=== PATIENT | female | born 1990 | race Two or more races ===

== ENCOUNTER 2019-11-30 12:00 | Emergency (ER) | payer SELFPAY ==
--- NOTE | 2019-11-30 13:18 | ER Document Report ---
ED Medical Screen (RME) - General Chief Complaint: Vag Bleeding, +preg <12wks Stated Complaint: VAGINAL BLEEDING Time Seen by Provider: 11/30/19 13:12 Mode of Arrival: Ambulatory Information source: Patient Notes: 28-year-old female presented to ED for pelvic pain since yesterday and bleeding since 5 AM this morning she states the bleeding is spotting but has steadily increased throughout the day and she did pass a clot before coming into the emergency room. She states she has had some frequency and urgency with urine she states she has not had an ultrasound this just exams. She states she is 6 weeks 3 para 2 did use a science interpreter #[id number] for this interview. Does not know her blood type. I have greeted and performed a rapid initial assessment of this patient. A comprehensive ED assessment and evaluation of the patient, analysis of test results and completion of medical decision making process will be conducted by an additional ED providers. - Related Data Allergies/Adverse Reactions: No Known Allergies Allergy (Unverified 11/30/19 13:11) Physical Exam - Vital signs Vitals: Temp Pulse Resp BP Pulse Ox 97.7 F 70 16 98/59 L 99 11/30/19 12:28 11/30/19 12:28 11/30/19 12:28 11/30/19 12:28 11/30/19 12:28 Course - Vital Signs Vital signs: Temp Pulse Resp BP Pulse Ox 97.7 F 70 16 98/59 L 99 11/30/19 12:28 11/30/19 12:28 11/30/19 12:28 11/30/19 12:28 11/30/19 12:28
[2019-11-30 14:13] LABS: ABSOLUTE EOSINOPHILS # (AUTO) 0.1 10^3/uL (0.0-0.6); ABSOLUTE LYMPHOCYTES (AUTO) 1.8 10^3/uL (0.5-4.7); ABSOLUTE MONOCYTES (AUTO) 0.6 10^3/uL (0.1-1.4); ABSOLUTE NEUT (AUTO) 4.5 10^3/uL (1.7-8.2); BASOPHILS % (AUTO) 0.5 % (0-2); EOSINOPHILS % (AUTO) 0.9 % (0-6); HEMATOCRIT 36.6 % (36.0-47.0); HEMOGLOBIN 12.5 g/dL (12.0-15.5); LYMPHOCYTES % (AUTO) 25.6 % (13-45); MEAN CORPUSCULAR HEMOGLOBIN 30.7 pg (27.0-33.4); MEAN CORPUSCULAR HGB CONC 34.2 g/dL (32.0-36.0); MEAN CORPUSCULAR VOLUME 90 fl (80-97); PLATELET COUNT 307 10^3/uL (150-450); RED BLOOD COUNT 4.07 10^6/uL (3.72-5.28); RED CELL DISTRIBUTION WIDTH 14.3 % (11.5-14.0); TOTAL CELLS COUNTED % (AUTO) 100 %
[2019-11-30 14:30] LABS: AMORPHOUS SEDIMENT,URINE TRACE /HPF; APPEARANCE,URINE CLOUDY; BILIRUBIN,URINE NEGATIVE (NEGATIVE); COLOR,URINE AMBER; GLUCOSE, URINE NEGATIVE (NEGATIVE); KETONES,URINE NEGATIVE (NEGATIVE); PROTEIN,URINE NEGATIVE (NEGATIVE); URINE SPECIFIC GRAVITY 1.019; UROBILINOGEN,URINE NEGATIVE mg/dL (<2.0)
[2019-11-30 14:33] LABS: ALBUMIN 4.3 g/dL (3.5-5.0); ALKALINE PHOSPHATASE 68 U/L (38-126); ANION GAP 11 (5-19); ASPARTATE AMINO TRANSFERASE 29 U/L (14-36); BILIRUBIN,DIRECT 0.2 mg/dL (0.0-0.4); BILIRUBIN,TOTAL 0.4 mg/dL (0.2-1.3); BLOOD UREA NITROGEN 10 mg/dL (7-20); CALCIUM 9.8 mg/dL (8.4-10.2); CARBON DIOXIDE 23 mmol/L (22-30); CHLORIDE 104 mmol/L (98-107); GLUCOSE 83 mg/dL (75-110); POTASSIUM 4.1 mmol/L (3.6-5.0); TOTAL PROTEIN 7.7 g/dL (6.3-8.2)
--- NOTE | 2019-11-30 18:02 | RADIOLOGY REPORT (SQ) ---
EXAM DESCRIPTION: U/S OB TRANSVAGINAL W/O DOP COMPLETED DATE/TIME: 11/30/2019 3:58 pm REASON FOR STUDY: Vaginal bleeding 6 weeks COMPARISON: None. TECHNIQUE: Transvaginal static and realtime grayscale images acquired of the pelvis. Additional jose cted spectral and color Doppler images recorded. All images stored on PACs. CLINICAL AGE: LMP 10/18/2019. EDC 07/24/2020. Gestational age 6 weeks 1 day. [id number] LIMITATIONS: None. FINDINGS: UTERUS: No masses. No anomalies. GESTATIONAL SAC: Normal shape. YOLK SAC: Present POLE: None present. RIGHT ADNEXA: Normal ovary with normal vascular flow. No adnexal free fluid. No adnexal masses. LEFT ADNEXA: Normal ovary with normal vascular flow. No adnexal free fluid. No adnexal masses. Probable left corpus luteum follicle. FREE FLUID: None. OTHER: No other significant finding. IMPRESSION: POSSIBLE EARLY INTRAUTERINE . Given beta HCG level, a pole would be expected to be seen at this time. Finding may represent a blighted ovum or impending miscarriage. Close clinical and sonographic follow-up is recommended. Trimester of : First trimester - 0 to 13 weeks. TECHNICAL DOCUMENTATION: JOB ID: [id number] 2297[employer]- All Rights Reserved Reading location - IP/workstation name: [email or web address]
--- NOTE | 2019-11-30 19:23 | ER Document Report ---
ED General - General Chief Complaint: Vaginal Bleeding Stated Complaint: VAGINAL BLEEDING Time Seen by Provider: 11/30/19 13:12 Mode of Arrival: Ambulatory Notes: Patient is a 28-year-old female with no significant past medical history who is approximately 6 weeks gestation per last menstrual period of 10/16/2020 who is G3, P2, 1 prior vaginal delivery and 1 both with no problems during gestation or delivery who presents to the emergency department with a chief complaint of pelvic pain that is sharp in nature accompanied by intermittent vaginal bleeding with passage of blood clots. Patient states that started at 5 AM. She states she was concerned so she came for evaluation. She is not had any ultrasound or quant hCG levels done previous to this date. She denies any specific urinary complaints. Denies any fever, nausea, vomiting, diarrhea. TRAVEL OUTSIDE OF THE [place] IN LAST 30 DAYS: No - Related Data Allergies/Adverse Reactions: No Known Allergies Allergy (Unverified 11/30/19 13:11) Home Medications: PNV Past Medical History - General Information source: Patient - Social History Smoking Status: Never Smoker Chew tobacco use (# tins/day): No Frequency of alcohol use: None Drug Abuse: None Family History: None Patient has suicidal ideation: No Patient has homicidal ideation: No Review of Systems - Review of Systems Gastrointestinal: Abdominal pain Female Genitourinary: Vaginal bleeding -: Yes All other systems reviewed and negative Physical Exam - Vital signs Vitals: Temp Pulse Resp BP Pulse Ox 97.7 F 70 16 98/59 L 99 11/30/19 12:28 11/30/19 12:28 11/30/19 12:28 11/30/19 12:28 11/30/19 12:28 - General General appearance: Appears well, Alert - Respiratory Respiratory status: No respiratory distress Chest status: Nontender Breath sounds: Normal Chest palpation: Normal - Cardiovascular Rhythm: Regular Heart sounds: Normal auscultation - Abdominal Inspection: Normal Distension: No distension Bowel sounds: Normal Tenderness: Nontender Organomegaly: No organomegaly - Back Back: Normal, Nontender. No: CVA tenderness - Neurological Neuro grossly intact: Yes Cognition: Normal Orientation: AAOx4 Atiya Coma Scale Eye Opening: Spontaneous [place] Coma Scale Verbal: Oriented Atiya Coma Scale Motor: Obeys Commands [place] Coma Scale Total: 15 Speech: Normal - Psychological Associated symptoms: Normal affect, Normal mood - Skin Skin Temperature: Warm Skin Moisture: Dry Skin Color: Normal Course - Re-evaluation Re-evalutation: 11/30/19 19:21 Patient is history and physical obtained utilizing Sami sign language translator, Nikole josemanuel, diplomatic interpreter [place] number [id number]. Discussed with patient the findings of quant hCG and ultrasound. Discussed with her likely incomplete . She will return in 2 days for beta-hCG testing. Discussed with her the importance of follow-up and advised she return here or any ER immediately with any new, persistent or worsening symptoms. She verbalized understood and agreed. - Vital Signs Vital signs: Temp Pulse Resp BP Pulse Ox 98.1 F 77 16 102/70 98 11/30/19 18:15 11/30/19 18:15 11/30/19 18:15 11/30/19 18:15 11/30/19 18:15 - Laboratory Result Diagrams: 11/30/19 13:49 11/30/19 13:49 Laboratory results interpreted by me: 11/30/19 11/30/19 11/30/19 13:49 13:49 13:49 RDW 14.3 H Beta HCG, Quant 21190.00 H Urine Blood MODERATE H Leukocyte Esterase Rfl TRACE H Urine Ascorbic Acid 40 H Discharge - Discharge Clinical Impression: Incomplete Condition: Stable Disposition: HOME, SELF-CARE Instructions: Threatened Miscarriage ([facility]) Additional Instructions: Please return here in 2 days for repeat blood testing. Return here or any ER immediately with any new, persistent or worsening symptoms.
[2019-11-30 19:58] VITALS: BP 104/70
== END 2019-11-30 19:58 | disposition home or self-care (01) ==
LOC: ER 12:00
DX: O03.4 Incomplete spontaneous abortion without complication (principal); Z3A.01 Less than 8 weeks gestation of pregnancy
CPT/HCPCS: 36415; 76817; 80053; 81001; 84702; 85025; 86900; 86901

== ENCOUNTER 2019-12-02 10:54 | Emergency (ER) | payer SELFPAY ==
--- NOTE | 2019-12-02 11:07 | ER Document Report ---
HPI - HPI Patient complains to provider of: Blood work Time Seen by Provider: 12/02/19 10:58 Pain Level: Denies Context: Patient states she was here 2 days ago with some vaginal bleeding and pelvic cramping. Patient is currently G3, P2 about 6 weeks . Patient states that she was advised to return for repeat blood work. Patient denies any pelvic pain or vaginal bleeding at this time. Patient denies any urinary symptoms or back pain. Associated Symptoms: None Exacerbated by: Denies Relieved by: Denies Similar symptoms previously: Yes Recently seen / treated by doctor: Yes - ROS ROS below otherwise negative: Yes Systems Reviewed and Negative: Yes All other systems reviewed and negative - CONSTITUTIONAL Constitutional: DENIES: Fever - NEURO Neurology: DENIES: Weakness - GASTROINTESTINAL Gastrointestinal: DENIES: Abdominal Pain, Nausea, Patient vomiting - REPRODUCTIVE Reproductive: REPORTS: :. DENIES: Abnormal bleeding / discharge - MUSCULOSKELETAL Musculoskeletal: DENIES: Back Pain - DERM Skin Color: Normal Skin Problems: None Past Medical History - General Information source: Patient - Social History Smoking Status: Former Smoker Chew tobacco use (# tins/day): No Frequency of alcohol use: None Drug Abuse: None Family History: None Patient has suicidal ideation: No Patient has homicidal ideation: No - Medical History Medical History: Negative Surgical Hx: Negative - Immunizations Immunizations up to date: Yes Vertical Provider Document - CONSTITUTIONAL Agree With Documented VS: Yes Exam Limitations: No Limitations General Appearance: WD/WN, No Apparent Distress - INFECTION CONTROL TRAVEL OUTSIDE OF THE [place] IN LAST 30 DAYS: No - HEENT HEENT: Atraumatic, Normocephalic - NECK Neck: Normal Inspection, Supple. negative: Lymphadenopathy-Left, Lymphadenopathy-Right - RESPIRATORY Respiratory: Breath Sounds Normal, No Respiratory Distress - CARDIOVASCULAR Cardiovascular: Regular Rate, Regular Rhythm - BACK Back: Normal Inspection - MUSCULOSKELETAL/EXTREMETIES Musculoskeletal/Extremeties: MAEW - NEURO Level of Consciousness: Awake, Alert, Appropriate Motor/Sensory: No Motor Deficit - DERM Integumentary: Warm, Dry, No Rash Course - Vital Signs Vital signs: Temp Pulse Resp BP Pulse Ox 97.9 F 61 16 105/61 100 12/02/19 10:58 12/02/19 10:58 12/02/19 10:58 12/02/19 10:58 12/02/19 10:58 - Diagnostic Test Radiology reviewed: Reports reviewed - Reviewed ultrasound report from previous ER visit as well as laboratory tests Discharge - Discharge Clinical Impression: hx vaginal bleeding during , encounter for repeat blood test Condition: Stable Disposition: HOME, SELF-CARE Additional Instructions: Follow-up with the health department for further evaluation, they will need to repeat your blood tests as well as your ultrasound to further evaluate your status. Return immediately for any new or worsening symptoms such as pain, vaginal bleeding, lightheadedness, dizziness or any concerning new symptoms. [facility] [Provider Group] - Follow up as needed
[2019-12-02 12:13] VITALS: BP 116/56
== END 2019-12-02 12:23 | disposition home or self-care (01) ==
LOC: ER 10:54
DX: O46.91 Antepartum hemorrhage, unspecified, first trimester (principal); O26.891 Other specified pregnancy related conditions, first trimester; R10.2 Pelvic and perineal pain; Z3A.01 Less than 8 weeks gestation of pregnancy; Z87.891 Personal history of nicotine dependence
CPT/HCPCS: 36415; 84702; 99284